=== PATIENT | female | born 2000 | race Caucasian/White ===

== ENCOUNTER 2023-07-13 00:08 | Outpatient (CLI) | payer OTHER, SELFPAY | END 2023-07-13 00:09 | disposition home or self-care (01) | LOC: AMB 07-31 00:34 | PROVIDERS: Visit Provider Family Medicine | DX: F10.129 Alcohol abuse with intoxication, unspecified (principal) | CPT/HCPCS: A0425; A0427 ==

== ENCOUNTER 2023-07-13 00:36 | Emergency (ER) | payer OTHER, SELFPAY ==
[2023-07-13 00:52] VITALS: BP 104/75; PULSE 73; RESP 16; TEMP 35.8; O2SAT 96
--- NOTE | 2023-07-13 01:07 | ED.GENADULT ---
HPI - General Adult General Chief complaint: Alcohol/Intoxication Stated complaint: ETOH Time Seen by Provider: 07/13/23 01:06 History of Present Illness HPI narrative: report from EMS , patient was drinking with friends jeanne and started throwing up, friend became concerned she was throwing up a lot and called EMS. patient is a [employer] student. 4mg zofran given per EMS. patient does not follow directions in triage and appears very intoxicated. 23-year-old young woman presenting to the emergency department via EMS intoxicated with alcohol. She does admit to alcohol ingestion denying other. Had been drinking with friends jeanne. Reported to be vomiting copiously and so EMS was called. Did receive Zofran. Clearly quite intoxicated on arrival. Initially with minimal focalization/conversation. Is not reported to have sustained any injury. No concern noted of intentional self-harm behavior. Underlying history of anxiety and depression. Related Data Home Medications Medication Instructions Recorded Confirmed escitalopram oxalate 20 mg tablet 20 mg PO QDAY 07/11/22 07/11/22 propranolol 20 mg tablet 20 mg PO .hs 07/11/22 07/11/22 Allergies Allergy/AdvReac Type Severity Reaction Status Date / Time No Known Drug Allergies Allergy Verified 07/11/22 12:56 Review of Systems Status of ROS: Reports: unobtainable due to medical condition (Quite intoxicated) and unobtainable due to mental status [facility] Surgical History (Updated 07/11/22 @ 15:29 by Chelsie Martinez PA-C) No history of previous surgery Family History (Updated 07/11/22 @ 15:30 by Chelsie Martinez PA-C) Mother Colon cancer FH: mental illness Father High blood pressure FH: mental illness Social History (Updated 07/11/22 @ 15:31 by Chelsie Martinez PA-C) Narrative: [employer] student. From [place]. Nonsmoker. Smoking Status: Never smoker Non-prescribed substance use: denies use Exam Narrative: Exam Narrative: Curled up in bed when I go to assess. Offers little in conversation. Pupils are equal 4 mm. Reactive but slowed. Head looks to be atraumatic. Lungs are clear. Heart on my auscultation was mildly elevated rate but in regular rhythm. Abdomen is soft. Appears to be nontender but again intoxicated. Extremities are without evidence of injury. Const: Vital Signs, click to edit/add: Vital Signs - 24 hr 07/13/23 00:52 Temperature 96.4 F L Pulse Rate [Pulse Oximeter] 73 Respiratory Rate 16 Blood Pressure [Le ft Forearm] 104/75 Pulse Oximetry 96 Oxygen Delivery Me thod Room Air Documenting provider has reviewed patient's vital signs: yes Course Vital Signs Vital signs: Initial Vital Signs Temperature 96.4 F L 07/13/23 00:52 Temperature Source Temporal Artery Scan 07/13/23 00:52 Pulse Rate 73 07/13/23 00:52 Respiratory Rate 16 07/13/23 00:52 Blood Pressure 104/75 07/13/23 00:52 Blood Pressure Mean 84 07/13/23 00:52 Blood Pressure Position Left Lateral 07/13/23 00:52 Pulse Oximetry 96 07/13/23 00:52 Oxygen Delivery Method Room Air 07/13/23 00:52 Vital Signs Temperature 96.4 F L 07/13/23 00:52 Pulse Rate 73 07/13/23 00:52 Respiratory Rate 16 07/13/23 00:52 Blood Pressure 104/75 07/13/23 00:52 Pulse Oximetry 96 07/13/23 00:52 Oxygen Delivery Method Room Air 07/13/23 00:52 Temperature 96.4 F L 07/13/23 00:52 Pulse Rate 73 07/13/23 00:52 Respiratory Rate 16 07/13/23 01:42 Blood Pressure 104/75 07/13/23 00:52 Pulse Oximetry 97 07/13/23 01:42 Oxygen Delivery Method Room Air 07/13/23 01:42 Medical Decision Making MDM Narrative Medical decision making narrative: Monitored in the emergency department alert and ambulatory. Supporting on airway. No further concerning information. Discharge to campus security. Discharge Plan Discharge Clinical Impression: Alcohol intoxication Patient Disposition: Home w/ Parent or Adult Condition: Improved Additional Instructions: If you are going to drink, please be more careful. Prescriptions: No Action escitalopram oxalate 20 mg tablet 20 mg PO QDAY propranolol 20 mg tablet 20 mg PO .hs Follow Up/Referrals: Provider,Not a Local [Primary Care Provider] - Stand Alone Forms: Ask The Doctor Info Instructions
[2023-07-13 01:42] VITALS: RESP 16; O2SAT 97
--- NOTE | 2023-07-13 01:42 | PC.NURSE ---
patient visualized on camera, RR even and unlabored. pulse ox in place
--- NOTE | 2023-07-13 02:33 | PC.NURSE ---
patient awake and alert. able to verbalize feeling much better and feeling okay to go home. campus security contacted to give patient a ride.
--- NOTE | 2023-07-13 03:12 | PC.NURSE ---
patient DC accompanied by campus security, all belongings sent with patient. patient ambulatory and alert. patient has no questions about DC instructions.
== END 2023-07-13 03:12 | disposition home or self-care (01) ==
PROVIDERS: Emergency Provider Family Medicine
DX: F10.129 Alcohol abuse with intoxication, unspecified (principal)
CPT/HCPCS: 99282; 99283; 99284